=== PATIENT | male | born 1950 ===

== ENCOUNTER 2025-04-06 14:29 | Inpatient (IN) | payer MEDICARE ==
[2025-04-06] MEDS ORDERED: Senokot S 8.6-50 MG TAB PO PRN (17:46)
[2025-04-06] MEDS: Amiodarone 200 MG TAB PO SCH (23:20)
[2025-04-06] MEDS: Calcium Carbonate 600 MG + Vit D TAB PO SCH (23:20)
[2025-04-06] MEDS: Ferrous Sulfate 325 MG TAB PO SCH (23:21)
[2025-04-07 04:45] LABS: #Basophils 0.04 10x3/uL (0.0-0.2); #Eosinophils 0.16 10x3/uL (0.0-0.7); #Monocytes 1.59 10x3/uL (0.11-0.59); #Neutrophils 6.52 10x3/uL (1.40-6.50); %Basophils 0.5 % (0.0-1.0); %Eosinophils 1.8 % (0.0-10.0); %Lymphocytes 4.7 % (21.0-51.0); %Monocytes 18.1 % (0.0-10.0); %Neutrophils 74.2 % (42.0-75.0); Hematocrit 32.5 % (42.0-52.0); Hemoglobin 10.5 g/dL (14.0-18.0); Mean Corpuscular Hemoglobin 33.4 pg (27.0-31.0); Mean Corpuscular Volume 103.5 fL (78.0-98.0); Platelet Count 148 10x3/uL (130-400); Red Blood Cell (RBC) Count 3.14 mill/uL (4.70-6.10); White Blood Cell (WBC) Count 8.78 10x3/uL (4.8-10.8)
[2025-04-07 05:03] LABS: Anion Gap 17 mmol/L (10-20); BUN (Urea Nitrogen) 15 mg/dL (8.4-25.7); Calc. Creatinine Clearance 0 mL/min (70-130); Calcium 8.1 mg/dL (7.8-10.44); Carbon Dioxide 20 mmol/L (23-31); Chloride 99 mmol/L (98-107); Glucose 97 mg/dL (83-110); Potassium 4.1 mmol/L (3.5-5.1); Sodium 132 mmol/L (136-145)
[2025-04-07] MEDS: Metoprolol Succinate XL 25 MG ER.TAB PO SCH (09:01)
[2025-04-07] MEDS: Pantoprazole 40 MG DR.TAB PO SCH (09:02)
[2025-04-07] MEDS: Aspirin Chewable 81 MG TAB PO SCH (09:02)
[2025-04-07] MEDS: Furosemide 20 MG TAB PO PRN (16:35)
[2025-04-10] MEDS: PNEUMOC 20-VAL CONJ-DIP CRM/PF 0.5 ML SYRINGE IM ONE (18:26)
[2025-04-11] MEDS: Acetaminophen/Codeine 30-300mg Tablet PO PRN (09:27)
[2025-04-11 11:32] VITALS: BP 100/59; TEMP 97.5
== END 2025-04-11 15:30 | DRG 64 ==
LOC: OBSVTOIN 16:12 → 2SE 16:12
PROVIDERS: ADMIT Family Medicine; ATTEND Student in an Organized Health Care Education/Training Program
DX: I63.512 Cerebral infarction due to unspecified occlusion or stenosis of left middle cerebral artery (principal); J96.01 Acute respiratory failure with hypoxia; Z66 Do not resuscitate; Z85.118 Personal history of other malignant neoplasm of bronchus and lung; R20.2 Paresthesia of skin; I48.0 Paroxysmal atrial fibrillation; I10 Essential (primary) hypertension
CPT/HCPCS: 36415; 70553; 76014; 76376; 80048; 85025; 97139